=== PATIENT | female | born 1945 | race Caucasian/White ===

== ENCOUNTER 2017-01-12 17:04 | Inpatient (IN) | payer OTHER ==
[~2017-01-12] VITALS: Ht 160 cm; Wt 43.1 kg
--- NOTE | 2017-01-12 17:06 | NUR ---
PT BIBA TO BED 8 AT THIS TIME.
[2017-01-12] MEDS ORDERED: NACL 0.9% 1,000 ML IV SCH (17:08)
--- NOTE | 2017-01-12 17:08 | NUR ---
71F BIBA FROM [facility] C/O HYPOGLYCEMIA TODAY; PER [facility], 2 IV'S TO LEFT/RT ARMS ESTABLISHED AT FACILITY "[facility]", [facility] REMOVED BOTH IV'S, AND STARTED 18G IV TO LEFT FA; IV PATENT AND FLUSHING WELL AT THIS TIME; NO REDNESS, INFILTRATION OR PAIN NOTED TO SITE AT THIS TIME; PT INITIAL BS 32; PT BS 118 IN FIELD AFTER D10 GIVEN BY [facility]; PT BS 98 AT THIS TIME; PT A&OX3, CALM/COOPERATIVE, PERRL, BL LUNG SOUNDS CLEAR, RR EVEN/UNLABORED, SKIN IS WARM/DRY AT THIS TIME; PT NOTED W/ REDNESS TO SACRUM AT THIS TIME; PT NOTED W/ G-TUBE. PT DENIES ANY PAIN, N/V/D OR DISCOMFORT AT THIS TIME. PT PLACED ON MONITOR, RESTING IN BED W/ HOB ELEVATED AND IN LOWEST POSITION; POSITIONED FOR COMFORT; ER MD MADE AWARE OF STATUS. WILL CONTINUE TO MONITOR.
[2017-01-12 17:10] VITALS: BP 167/75
[2017-01-12] MEDS ORDERED: ONDANSETRON 4 MG/2 ML VIAL IVP ONE (17:10)
--- NOTE | 2017-01-12 17:33 | NUR ---
XRAY AT BEDSIDE.
[2017-01-12 17:42] LABS: HEMATOCRIT 30.4 % (36-48); HEMOGLOBIN 9.9 g/dL (12.0-16.0); MEAN CORPUSCULAR HEMOGLOBIN 32 pg (27-31); MEAN CORPUSCULAR HGB CONC 33 g/dL (33-37); MEAN CORPUSCULAR VOLUME 98 fL (80-94); RED BLOOD CELL COUNT(AUTO) 3.11 MIL/uL (4.20-5.40); RED CELL DISTRIBUTION WIDTH 22.1 % (11.6-13.7); WHITE BLOOD COUNT (AUTO) 25.3 K/uL (4.8-10.8)
--- NOTE | 2017-01-12 17:42 | NUR ---
PT TAKEN TO CT VIA ANDRES, ACCOMPANIED BY INTERNET ARCHITECT AT THIS TIME.
[2017-01-12 17:57] LABS: ALANINE AMINOTRANSFERASE 33 U/L (12-78); ALKALINE PHOSPHATASE 122 U/L (46-116); ANION GAP 12.9 (8-16); ASPARTATE AMINOTRANSFERASE 31 U/L (15-37); CARBON DIOXIDE 26.9 mmol/L (21-32); CHLORIDE 97 mmol/L (98-107); CREATININE 1.6 mg/dL (0.6-1.3); POTASSIUM 4.8 mmol/L (3.5-5.1); SODIUM SERUM 132 mmol/L (136-145)
--- NOTE | 2017-01-12 17:58 | NUR ---
ASSISTED PT TO AMBULATE TO RESTROOM AT THIS TIME.
[2017-01-12] MEDS ORDERED: MULT-1328 PO (17:59)
[2017-01-12] MEDS ORDERED: MAGN400S60 PO (17:59)
[2017-01-12] MEDS ORDERED: TIMO5SOL OP (17:59)
[2017-01-12] MEDS ORDERED: GABA300C PO (17:59)
[2017-01-12] MEDS ORDERED: TRAM50TA94 PO (17:59)
[2017-01-12] MEDS ORDERED: DOCU-67 PO (17:59)
[2017-01-12] MEDS ORDERED: FERR325E14 PO (17:59)
[2017-01-12] MEDS ORDERED: DONE5TAB2 PO (17:59)
[2017-01-12] MEDS ORDERED: HYDR500C PO ×2 (17:59)
[2017-01-12] MEDS ORDERED: NA P135N19 RC (17:59)
[2017-01-12] MEDS ORDERED: CHOL500040 PO (17:59)
[2017-01-12] MEDS ORDERED: BISA-213 RC (17:59)
[2017-01-12] MEDS ORDERED: TYL650S PO (17:59)
[2017-01-12] MEDS ORDERED: LIPA1CAP3 PO (17:59)
[2017-01-12] MEDS ORDERED: GLUC1PDS1 IM (17:59)
[2017-01-12] MEDS ORDERED: CALC-1258 PO (17:59)
[2017-01-12] MEDS ORDERED: ZOLP10TA1 PO (17:59)
[2017-01-12] MEDS ORDERED: ENAL5TAB76 PO (17:59)
[2017-01-12 18:01] LABS: PLATELET COUNT (AUTO) 787 K/uL (140-450)
[2017-01-12 18:06] LABS: ANISOCYTOSIS 2+; BAND % (MANUAL) 1 % (0-8); EOSINOPHILS % (MANUAL) 3 % (0-4); LYMPHOCYTES % (MANUAL) 5 % (20-46); MONOCYTES % (MANUAL) 6 % (5-12); NEUTROPHILS % (MANUAL) 85 (43-65); PLATELET ESTIMATE INCREASED
[2017-01-12] MEDS ORDERED: NACL 0.9% 1,000 ML IV ONE (18:10)
[2017-01-12 18:11] LABS: ALBUMIN 2.9 g/dL (3.4-5.0); CALCIUM 8.4 mg/dL (8.5-10.1); GLUCOSE 161 mg/dL (74-106); TOTAL BILIRUBIN 0.2 mg/dL (0.0-1.0); UREA NITROGEN, BLOOD 37 mg/dL (7-18)
[2017-01-12 18:13] LABS: PARTIAL THROMBOPLASTIN TIME 47.2 secs (22-35.6)
[2017-01-12 18:14] LABS: D-DIMER > 5000 ng/ml (0-400)
[2017-01-12 18:17] LABS: AMYLASE 39 U/L (25-115); LIPASE 46 U/L (73-393)
[2017-01-12 18:18] LABS: INR 5.8 (0.8-1.2)
[2017-01-12 18:28] LABS: PROTHROMBIN TIME 57.1 secs (10.8-13.4)
[2017-01-12] MEDS ORDERED: cefTRIAXone 1,000 MG VIAL ONE (18:28)
[2017-01-12 18:43] LABS: LACTIC ACID 1.4 mmol/L (0.4-2.0)
[2017-01-12 18:55] LABS: APPEARANCE,URINE CLEAR (CLEAR); BILIRUBIN,URINE NEGATIVE (NEGATIVE); BLOOD, URINE NEGATIVE (NEGATIVE); COLOR,URINE YELLOW (YELLOW); LEUKOCYTE ESTERASE ,URINE 1+ (NEGATIVE); NITRITE, URINE NEGATIVE (NEGATIVE); PH,URINE 6.5 (5.0-9.0); PROTEIN,URINE TRACE (NEGATIVE); UGLUCOSE NEGATIVE (NEGATIVE); UROBILINOGEN,URINE 0.2 EU/dL (0.2 - 1)
--- NOTE | 2017-01-12 18:55 | NUR ---
CALLED [facility] TO GIVE REPORT; RN STATED WILL CALL BACK IN 5 MINUTES; WILL CONTINUE TO MONITOR PT.
[2017-01-12 19:13] LABS: RBC,URINE NONE SEEN /HPF (0-5)
[2017-01-12 19:14] LABS: BACTERIA,URINE 1-9 (FEW) /HPF (None Seen); SQUAMOUS EPITHELIAL CELL,UR 0-3 (FEW) /LPF (0-3 (FEW))
--- NOTE | 2017-01-12 19:16 | NUR ---
REPORT GIVEN TO ANUP TURNER; TRANSFER OF CARE AT THIS TIME.
[2017-01-12] MEDS ORDERED: MORPHINE SULFATE 2 MG/ML SYR IVP PRN (19:20)
[2017-01-12] MEDS ORDERED: ONDANSETRON 4 MG/2 ML VIAL IVP PRN (19:20)
[2017-01-12] MEDS ORDERED: HYDROcodone/APAP 5/325 MG 1 TAB TAB PO PRN (19:20)
[2017-01-12] MEDS ORDERED: DOCUSATE SODIUM 100 MG GELCAP PO PRN (19:20)
[2017-01-12] MEDS: LACTOBACILLUS RHAMNOSUS GG 1 EACH CAP PO SCH (19:20)
[2017-01-12] MEDS ORDERED: ACETAMINOPHEN 325 MG TAB PO PRN (19:20)
--- NOTE | 2017-01-12 19:23 | NUR ---
Patient will be admitted to care of DR. KAMARA. Admited to TELEMETRY. Will go to room 124A. Belongings list completed. Report to ANUP TURNER.
[2017-01-12] MEDS ORDERED: SODIUM PHOSPHATE 118 ML ENEM RC PRN (19:25)
[2017-01-12] MEDS ORDERED: GABAPENTIN 300 MG CAP PO PRN (19:25)
[2017-01-12] MEDS ORDERED: GLUCAGON HUMAN RECOMBINANT 1 MG IM PRN (19:25)
[2017-01-12] MEDS ORDERED: BISACODYL 10 MG SUPP RC PRN (19:25)
[2017-01-12] MEDS ORDERED: MAGNESIUM HYDROXIDE 2400 MG/30 ML UDC PO PRN (19:25)
--- NOTE | 2017-01-12 19:54 | NUR ---
RECEIVED FROM AM RN PER MARGUERITE AWAKE AND ALERT. NO SOB. ABLE TO VERBALIZE NEEDS WELL. ON TELEMETRY MONITORING. NSR IN MONITOR 89.PT. ABLE TO VERBALIZE NEEDS IN SERBIAN. CALL LIGHT WITH IN REACH. ORIENTED TO ROOM AND CALL LIGHT. ENCOURAGED TO CALL FOR ANY HELP SHE MAY NEED OR IF IN PAIN. IVF SITE TO [id number]. REDNESS TO SACRAL AREA. ROM X 4.
[2017-01-12 19:56] LABS: AMPHETAMINE, URINE NEGATIVE ng/ml (NEG <=1000); BARBITURATE, URINE NEGATIVE ng/ml (NEG <=200); BENZODIAZEPINE, URINE POSITIVE ng/mL (NEG <=200); CANNABINOID, URINE NEGATIVE ng/mL (NEG <=50); COCAINE, URINE NEGATIVE ng/mL (NEG <=300); OPIATE, URINE NEGATIVE ng/mL (NEG <=2000); PHENCYCLIDINE SCREEN,URINE NEGATIVE ng/mL (NEG <=25)
[2017-01-12 20:00] VITALS: BP 150/63
[2017-01-12 20:00] LABS: MAGNESIUM 1.7 mg/dL (1.8-2.4); PHOSPHORUS 4.6 mg/dL (2.5-4.9)
[2017-01-12 20:08] LABS: BILIRUBIN,DIRECT 0.1 mg/dL (0.0-0.3)
[2017-01-12 20:33] LABS: FREE T4 (FREE THYROXINE) 0.99 ng/dL (0.76-1.46); THYROID STIMULATING HORMONE 4.67 uIU/mL (0.34-3.76)
[2017-01-12 20:47] LABS: PARTIAL THROMBOPLASTIN TIME 46.4 secs (22-35.6)
[2017-01-12 20:56] LABS: INR 5.1 (0.8-1.2)
[2017-01-12] MEDS ORDERED: TIMOLOL OP SCH (21:00)
[2017-01-12 21:06] LABS: LACTIC ACID 1.5 mmol/L (0.4-2.0)
[2017-01-12 21:18] LABS: PROTHROMBIN TIME 50.4 secs (10.8-13.4)
--- NOTE | 2017-01-12 22:00 | NUR ---
PT. AWAKE AND WATCHING TV AT THIS TIME. STAND BY ASSIST TO RESTROOM. ROM X 4. WITH WEAKNESS NOTED RT AFFLICTION. ENCOURAGED TO USE CALL LIGHT AT ALL TIMES FOR HELP . BED ALARM ON.
[2017-01-12] MEDS: ZOLPIDEM 10 MG TAB PO SCH (22:50)
[2017-01-12] MEDS: DONEPEZIL 10 MG TAB PO SCH (22:51)
[2017-01-12] MEDS: traMADol 50 MG TAB PO SCH (22:51)
[2017-01-12] MEDS: PIPER/TAZO 2.25GM/D5W PREMIX 50 ML IV SCH (23:56)
[2017-01-12] MEDS ORDERED: PIPERACILLIN/TAZOBACTAM 2.25 GM VIAL IV ONE (23:59)
[2017-01-13 00:27] VITALS: BP 139/60
--- NOTE | 2017-01-13 01:39 | NUR ---
SLEEPING AT THIS TIME. CALL LIGHT WITH IN REACH.
[2017-01-13 04:31] VITALS: BP 144/69
--- NOTE | 2017-01-13 04:52 | NUR ---
AWAKE AND ASSISTED TO RESTROOM. ABLE TO VERBALIZE NEEDS WELL. NO SOB. NO PAIN COMPLAINTS DONE THIS SHIFT. TELEMETRY MONITORING. BED ALARM ON .
[2017-01-13] MEDS ORDERED: PIPERACILLIN/TAZOBACTAM 2.25 GM VIAL IV ONE (05:41)
[2017-01-13] MEDS: PIPER/TAZO 2.25GM/D5W PREMIX 50 ML IV SCH ×3 (05:46→18:13)
--- NOTE | 2017-01-13 06:31 | NUR ---
PT. AWAKE AT THIS TIME. ASSISTED TO RESTROOM. ORIENTED X 4. ROM X 4. CLEAR SPEECH. NO SOB. DENIES PAIN THIS SHIFT.
--- NOTE | 2017-01-13 07:30 | NUR ---
RECEIVED PT ON BILLING ADMINISTRATOR ANUP TURNER. PT AWAKE, ALERT. ON ROOM AIR. NO S/S OF RESPIRATORY DISTRESS NOTED. VITALS TAKEN , NO FEVER. ABDOMEN SOFT, NON TENDER. PT ABLE TO MOVE ALL HER EXTREMITIES. DENIES PAIN AT THIS TIME. CALL LIGHT IN REACH, HOB ELEVATED 30 DEGREES WITH LOW BED POSITION. WILL CONTINUE TO MONITOR.
[2017-01-13 08:00] VITALS: BP 145/68
[2017-01-13] MEDS ORDERED: GLUCAGON 1 MG VIAL IM PRN (08:00)
--- NOTE | 2017-01-13 08:15 | NUR ---
ASSISTED PT TO AMBULATE TO BATHROOM.
--- NOTE | 2017-01-13 08:33 | NUR ---
RECEIVED CRITICAL LAB REPORT, PLT COUNT 730.8, WBC 20,7. DR. CASE AWARE, NO NEW ORDER RECEIVED .
--- NOTE | 2017-01-13 08:37 | NUR ---
PATIENT HAS BEEN SCREENED AND CATEGORIZED HIGH NUTRITION RISK. PATIENT WILL BE SEEN WITHIN 1-2 DAYS OF ADMISSION. 01/13/17-01/14/[address]
[2017-01-13 08:58] LABS: HEMATOCRIT 34.9 % (36-48); HEMOGLOBIN 11.2 g/dL (12.0-16.0); MEAN CORPUSCULAR HEMOGLOBIN 32 pg (27-31); MEAN CORPUSCULAR HGB CONC 32 g/dL (33-37); MEAN CORPUSCULAR VOLUME 99 fL (80-94); RED BLOOD CELL COUNT(AUTO) 3.53 MIL/uL (4.20-5.40); RED CELL DISTRIBUTION WIDTH 22.8 % (11.6-13.7); WHITE BLOOD COUNT (AUTO) 20.7 K/uL (4.8-10.8)
[2017-01-13 09:00] LABS: ANION GAP 13.9 (8-16); CALCIUM 9.1 mg/dL (8.5-10.1); CARBON DIOXIDE 29.4 mmol/L (21-32); CHLORIDE 96 mmol/L (98-107); CREATININE 1.6 mg/dL (0.6-1.3); GLUCOSE 68 mg/dL (74-106); POTASSIUM 4.3 mmol/L (3.5-5.1); SODIUM SERUM 135 mmol/L (136-145); UREA NITROGEN, BLOOD 31 mg/dL (7-18)
[2017-01-13] MEDS: TIMOLOL OP 0.25% 5 ML BTL OP SCH ×2 (09:00→20:36)
[2017-01-13] MEDS ORDERED: PROTEASE PO SCH (09:00)
[2017-01-13] MEDS ORDERED: LIPASE PO SCH (09:00)
[2017-01-13] MEDS ORDERED: AMYLASE PO SCH (09:00)
[2017-01-13] MEDS ORDERED: VITAMIN D3 PO SCH (09:00)
[2017-01-13] MEDS: HYDRAGUARD CREAM TP SCH ×2 (09:00→20:36)
[2017-01-13] MEDS ORDERED: CALCIUM CARBONATE PO SCH (09:00)
[2017-01-13 09:04] LABS: PLATELET COUNT (AUTO) 731 K/uL (140-450)
[2017-01-13] MEDS: CALCIUM CARB/VIT-D 500 MG/200 IU 1 TAB PO SCH (09:10)
[2017-01-13] MEDS: LACTOBACILLUS RHAMNOSUS GG 1 EACH CAP PO SCH (09:11)
[2017-01-13] MEDS: MULTIVITAMIN/MINERALS 1 TAB PO SCH (09:12)
[2017-01-13] MEDS: PANTOPRAZOLE 40 MG TABEC PO SCH (09:13)
[2017-01-13] MEDS: ENALAPRIL 5 MG TAB PO SCH (09:13)
[2017-01-13] MEDS: FERROUS SULFATE 325 MG TABEC PO SCH (09:13)
[2017-01-13] MEDS: traMADol 50 MG TAB PO SCH ×2 (09:14→20:32)
[2017-01-13] MEDS: AMYLASE/LIPASE/PROTEASE 1 CAPDR PO SCH (09:14)
[2017-01-13] MEDS: HYDROXYUREA 500 MG CAP PO SCH (09:37)
[2017-01-13 09:45] LABS: ANISOCYTOSIS 1+; BAND % (MANUAL) 1 % (0-8); BASOPHILS % (MANUAL) 1 % (0-2); EOSINOPHILS % (MANUAL) 2 % (0-4); LYMPHOCYTES % (MANUAL) 12 % (20-46); MONOCYTES % (MANUAL) 7 % (5-12); NEUTROPHILS % (MANUAL) 77 (43-65); PLATELET ESTIMATE INCREASED
--- NOTE | 2017-01-13 10:05 | NUR ---
ASSISTED PT TO AMBULATE TO BATH ROOM.
[2017-01-13 12:00] VITALS: BP 146/70
--- NOTE | 2017-01-13 12:05 | NUR ---
LUNCH TRAY SERVED. PT HAS A GOOD APPETITE.
--- NOTE | 2017-01-13 14:53 | NUR ---
CM NOTE INITIAL REVIEW FAXED TO [facility] / FAX# [phone], ATTN: TERESITA #[phone]
[2017-01-13 16:00] VITALS: BP 151/71
--- NOTE | 2017-01-13 16:35 | NUR ---
PT RESTING IN BED, WATCHING TV. NO S/S OF RESPIRATORY DISTRESS NOTED. PT STATES SHE FEELS COMFORTABLE AT THIS TIME.
--- NOTE | 2017-01-13 17:40 | NUR ---
PT'S SISTER AND MOTHER AT BEDSIDE, QUESTIONS ANSWERED .
[2017-01-13] MEDS ORDERED: DEXTROSE 50% 50 ML SYR IVP PRN (18:05)
[2017-01-13] MEDS: INSULIN LISPRO SLIDING SCALE 100 UNITS/ML VIAL SUBQ PRN (18:45)
--- NOTE | 2017-01-13 19:30 | NUR ---
RECEIVE REPORT FROM ANUP LO. PT IS AWAKE AND ALERT, SITTING POSITION, HAS NO COMPLAIN OF PAIN. ON ROOM AIR, HAS NO S/S OF RESPIRATORY DISTRESS/DISCOMFORT NOTED. IV SITE IS PATENT AND INTACT. PLAN OF CARE DISCUSSED, VERBALIZED UNDERSTANDING. SAFETY MEASURES CHECKED, CALL LIGHT WITHIN REACH. WILL CONTINUE TO MONITOR.
--- NOTE | 2017-01-13 19:30 | NUR ---
PT AWAKE, ALERT. NO S/S OF RESPIRATORY DISTRESS NOTED. REPORT GIVEN TO MOJGAN RN AT BEDSIDE. PT IN STABLE CONDITION AT THIS TIME.
[2017-01-13 20:00] VITALS: BP 138/68
[2017-01-13] MEDS: DONEPEZIL 10 MG TAB PO SCH (20:32)
[2017-01-13] MEDS: ZOLPIDEM 10 MG TAB PO SCH (20:32)
[2017-01-13] MEDS: BLOOD GLUCOSE MONITORING 1 DEV DEV FS SCH (20:34)
--- NOTE | 2017-01-13 20:38 | NUR ---
DUE MEDS GIVEN, PROVIDED DRUG INFO, BENEFITS AND S/E, VERBALIZED UNDERSTANDING. PT TOLERATED WELL. BLOOD SUGAR CHECKED, BSL= 283, INSULIN COVERAGE WILL HOLD DUE TO INSULIN HUMALOG WAS GIVEN AT 1845. CHARGE NURSE MADE AWARE.
--- NOTE | 2017-01-13 21:45 | NUR ---
PT AMBULATED TO THE RESTROOM, SAFETY PRECAUTION CHECKED, YELLOW SOCKS NOTED TO THE PT. PT IN STEADY GAIT.
[2017-01-14] VITALS: BP 122/57
--- NOTE | 2017-01-14 | NUR ---
V/S CHECKED AND STABLE. HAS NO COMPLAIN OF PAIN, NOT IN DISTRESS. NO SOB NOTED.
[2017-01-14] MEDS: PIPER/TAZO 2.25GM/D5W PREMIX 50 ML IV SCH ×5 (00:17→23:38)
--- NOTE | 2017-01-14 02:38 | NUR ---
PT IS SLEEPING. NO S/S OR RESPIRATORY DISTRESS/DISCOMFORT NOTED.
[2017-01-14 04:00] VITALS: BP 141/76
--- NOTE | 2017-01-14 04:00 | NUR ---
PT SLEEPING EASILY AWAKE BY HER NAME. V/S CHECKED ANS STABLE. NO COMPLAIN OF PAIN. NO S/S OF RESPIRATORY DISTRESS/DISCOMFORT NOTED.
[2017-01-14 05:45] LABS: HEMATOCRIT 29.3 % (36-48); HEMOGLOBIN 9.7 g/dL (12.0-16.0); MEAN CORPUSCULAR HEMOGLOBIN 32 pg (27-31); MEAN CORPUSCULAR HGB CONC 33 g/dL (33-37); MEAN CORPUSCULAR VOLUME 98 fL (80-94); PLATELET COUNT (AUTO) 730 K/uL (140-450); RED CELL DISTRIBUTION WIDTH 22.1 % (11.6-13.7); WHITE BLOOD COUNT (AUTO) 15.2 K/uL (4.8-10.8)
[2017-01-14] MEDS: INSULIN LISPRO SLIDING SCALE 100 UNITS/ML VIAL SUBQ PRN ×4 (05:55→21:00)
--- NOTE | 2017-01-14 06:00 | NUR ---
BLOOD SUGAR CHECKED, BSL= 406, ADMINISTERED 10 UNITS OF INSULIN, CHARGE NURSE MADE AWARE. WILL PAGE DR. KAMARA FOR THE INSULIN LEVEL.
[2017-01-14 06:04] LABS: ANION GAP 13.2 (8-16); CALCIUM 8.7 mg/dL (8.5-10.1); CARBON DIOXIDE 27.1 mmol/L (21-32); CHLORIDE 94 mmol/L (98-107); CREATININE 2.1 mg/dL (0.6-1.3); GLUCOSE 385 mg/dL (74-106); MAGNESIUM 1.7 mg/dL (1.8-2.4); PHOSPHORUS 4.3 mg/dL (2.5-4.9); POTASSIUM 5.3 mmol/L (3.5-5.1); SODIUM SERUM 129 mmol/L (136-145); UREA NITROGEN, BLOOD 35 mg/dL (7-18)
--- NOTE | 2017-01-14 06:40 | NUR ---
PAGED DR. KAMARA, WAITING FOR CALL BACK. RECHECKED BLOOD SUGAR, BSL = 358.
[2017-01-14 06:47] LABS: BAND % (MANUAL) 1 % (0-8); EOSINOPHILS % (MANUAL) 1 % (0-4); LYMPHOCYTES % (MANUAL) 8 % (20-46); MONOCYTES % (MANUAL) 1 % (5-12); NEUTROPHILS % (MANUAL) 89 (43-65)
[2017-01-14 06:48] LABS: PLATELET ESTIMATE INCREASED
[2017-01-14 06:49] LABS: ANISOCYTOSIS 1+
--- NOTE | 2017-01-14 07:11 | NUR ---
ENDORSED REPORT TO DAY SHIFT NURSE FOR CONTINUITY OF CARE. PT IS IN STABLE CONDITION.
[2017-01-14 07:40] LABS: INR 2.9 (0.8-1.2); PROTHROMBIN TIME 28.4 secs (10.8-13.4)
--- NOTE | 2017-01-14 07:45 | NUR ---
RECEIVED PT LYING IN BED AAOX2, PLEASANT, COOPERATIVE BUT FORGETFUL. PT VOICED NO C/O PAIN/ DISCOMFORT AT THIS TIME. SHIFT ASSESSMENT DONE AND CHARTED. PLAN OF CARE, MEDS, TREATMENTS AND SAFETY DISCUSSED WITH PT AND PT VERBALIZED UNDERSTANDING. WILL CONTINUE TO CHECK PT.
[2017-01-14] MEDS: NACL 0.9% 1,000 ML IV SCH ×2 (07:57→20:32)
[2017-01-14 08:00] VITALS: BP 125/68
[2017-01-14] MEDS ORDERED: SODIUM POLYSTYRENE 15 GM/60 ML UDBTL PR SCH (08:00)
[2017-01-14] MEDS: BLOOD GLUCOSE MONITORING 1 DEV DEV FS SCH ×4 (08:14→21:00)
--- NOTE | 2017-01-14 08:30 | NUR ---
PT TOOK DIET AND FLUIDS FAIRLY WELL. KAYAXELATE PO GIVEN PER MD'S ORDER FOR K+ 5.3. PT TOLERATED IT WELL.
[2017-01-14] MEDS: CALCIUM CARB/VIT-D 500 MG/200 IU 1 TAB PO SCH (08:52)
[2017-01-14] MEDS: traMADol 50 MG TAB PO SCH ×2 (08:53→20:30)
[2017-01-14] MEDS: ENALAPRIL 5 MG TAB PO SCH (08:53)
[2017-01-14] MEDS: HYDROXYUREA 500 MG CAP PO SCH (08:54)
[2017-01-14] MEDS: FERROUS SULFATE 325 MG TABEC PO SCH (08:54)
[2017-01-14] MEDS: PANTOPRAZOLE 40 MG TABEC PO SCH (08:55)
[2017-01-14] MEDS: MULTIVITAMIN/MINERALS 1 TAB PO SCH (08:55)
[2017-01-14] MEDS: AMYLASE/LIPASE/PROTEASE 1 CAPDR PO SCH (08:55)
[2017-01-14] MEDS: LACTOBACILLUS RHAMNOSUS GG 1 EACH CAP PO SCH (08:55)
[2017-01-14] MEDS: TIMOLOL OP 0.25% 5 ML BTL OP SCH ×2 (08:56→20:30)
[2017-01-14] MEDS: LACTULOSE 20 GM/30 ML UDC PO SCH ×2 (08:57→12:21)
[2017-01-14] MEDS: HYDRAGUARD CREAM TP SCH ×2 (08:59→20:32)
[2017-01-14] MEDS: INSULIN DETEMIR 100 UNITS/ML 10 ML VIAL SUBQ SCH (08:59)
--- NOTE | 2017-01-14 09:15 | NUR ---
PT TOOK SCHEDULED PO MEDS AND TOLERATED OT WELL. REFUSED LACTULOSE PT STATED THAT SHE ALREADY HAD A BM. PT'S SISTER VISITING AT THIS TIME AND WANTED TO TALK TO MD FOR UPDATE ON PT'S CONDITION. DR. PRINCE NOTIFIED OF SAME.
[2017-01-14] MEDS ORDERED: MAGNESIUM OXIDE 400 MG TAB PO SCH (10:30)
--- NOTE | 2017-01-14 10:30 | NUR ---
DR. PRINCE WAS IN AND TALKED TO PT AND HER SISTER RE PT'S CONDITION.
--- NOTE | 2017-01-14 11:00 | NUR ---
TELEMETRY DISCONTINUED AND TELE BOX REMOVED AND RETURNED TO DIRECTOR TELEHEALTH.
--- NOTE | 2017-01-14 12:15 | NUR ---
01/14/17 RD INITIAL ASSESSMENT COMPLETED PLEASE REFER TO NUTRITION ASSESSMENT UNDER CARE ACTIVITY FOR ESTIMATED NUTRITIONAL NEEDS. ENEDINA RECOMMENDATIONS: 1. CONTINUE CARDIAC DIET WITH HONEY THICKENED LIQUIDS AND BOOST GLUCOSE CONTROL TID 2. RECOMMEND ADDING CCHO 60 GM TO CURRENT DIET ORDER D/T PT WITH PMH DM AND ELEVATED GLUCOSE LEVELS --PT MEETING 100% OF ESTIMATED KCAL AND PROTEIN NEEDS WITH DIET AND NUTRITIONAL SUPPLEMENT 3. RD WILL F/U 3-5 DAYS; HIGH RISK. GALINA LANDRY RD Addendum: 01/14/17 at [address] CORRECTION: 3. RD WILL F/U 3-5 DAYS; MODERATE RISK GALINA LANDRY RD
--- NOTE | 2017-01-14 13:00 | NUR ---
PT UP IN CHAIR AT BEDSIDE FOR LUNCH. TOOK DIET AND FLUIDS WELL. PT'S SON VISITING AND WAS SEEN BY DR. PRINCE PER PT'S SON REQUEST FOR UPDATE ON PT'S CONDITION.
[2017-01-14] MEDS: SODIUM POLYSTYRENE 15 GM/60 ML UDBTL PR SCH ×2 (13:53→20:29)
--- NOTE | 2017-01-14 15:27 | NUR ---
PT LYING IN BED COMFORTABLY AND WAS IN NO DISTRESS. NO CHANGES NOTED IN PT'S CONDITION.
[2017-01-14 16:00] VITALS: BP 136/63
--- NOTE | 2017-01-14 17:30 | NUR ---
PT C/O IV SITE BEING PAINFUL AND STARTING TO GET RED. SAME REMOVED WITH OLD CATH TIP INTACT AND PRESSURE DRESSINGS APPLIED TO SITE. NEW G22 IV INSERTED TO PT'S LEFT FOREARM ASEPTICALLY. PT TOLERATED IT WELL.
--- NOTE | 2017-01-14 19:20 | NUR ---
REPORT GIVEN TO ANGIE HEBERT AT BEDSIDE. NO CHANGES NOTED IN PT'S CONDITION.
--- NOTE | 2017-01-14 19:30 | NUR ---
RECEIVED REPORT FROM CODIE HEBERT AT BEDSIDE. PT IS ALERT AWAKE ORIENTED X3 WITH CONFUSION SOMETIMES. INITIAL ASSESSMENT DONE. NO S/S OF RESPIRATORY DISTRESS OR SOB NOTED. NO C/O PAIN OR ANY DISCOMFORT AT THIS TIME. PLAN OF CARE REVIEWED TO PT AND VERBALIZED UNDERSTANDING AND NEED TO BE REINFORCED. CALL LIGHT WITHIN REACH. WILL CONTINUE TO MONITOR.
[2017-01-14] MEDS: DONEPEZIL 10 MG TAB PO SCH (20:30)
[2017-01-14] MEDS ORDERED: DONEPEZIL 10 MG TAB PO SCH (21:00)
[2017-01-14] MEDS: ZOLPIDEM 10 MG TAB PO SCH (21:11)
[2017-01-15] VITALS: BP 157/66
--- NOTE | 2017-01-15 00:30 | NUR ---
PT IS SLEEPING RIGHT NOW BUT EASILY AROUSABLE. NO S/S OF ANY DISCOMFORT AT THIS TIME. ALL NEEDS ARE ATTENDED. CALL LIGHT WITHIN REACH. WILL CONTINUE TO MONITOR.
--- NOTE | 2017-01-15 05:15 | NUR ---
AM CARE RENDERED. BED LINEN CHANGED. INSTRUCTED PT TO REPOSITION. KEPT CLEAN AND DRY. CALL LIGHT WITHIN REACH. WILL CONTINUE TO MONITOR.
[2017-01-15] MEDS: PIPER/TAZO 2.25GM/D5W PREMIX 50 ML IV SCH ×4 (05:23→23:35)
[2017-01-15] MEDS: BLOOD GLUCOSE MONITORING 1 DEV DEV FS SCH ×4 (06:33→21:00)
[2017-01-15] MEDS: INSULIN LISPRO SLIDING SCALE 100 UNITS/ML VIAL SUBQ PRN ×4 (06:34→22:14)
[2017-01-15 06:58] LABS: BASOPHILS # (AUTO) 0.1 K/uL (0.00-0.22); BASOPHILS % (AUTO) 0.6 % (0.0-2.0); EOSINOPHILS # (AUTO) 0.2 K/uL (0-0.4); EOSINOPHILS % (AUTO) 1.4 % (0.0-4.0); HEMATOCRIT 26.6 % (36-48); HEMOGLOBIN 8.6 g/dL (12.0-16.0); LYMPHOCYTES # (AUTO) 1.5 K/uL (2.5-16.5); LYMPHOCYTES % (AUTO) 11.1 % (20.5-51.1); MEAN CORPUSCULAR HEMOGLOBIN 32 pg (27-31); MEAN CORPUSCULAR HGB CONC 32 g/dL (33-37); MEAN CORPUSCULAR VOLUME 98 fL (80-94); MONOCYTES # (AUTO) 1.1 K/uL (0.8-1.0); MONOCYTES % (AUTO) 8.3 % (1.7-9.3); NEUTROPHILS # (AUTO) 10.4 K/uL (1.8-7.7); NEUTROPHILS % (AUTO) 78.6 % (42.2-75.2); PLATELET COUNT (AUTO) 682 K/uL (140-450); RED BLOOD CELL COUNT(AUTO) 2.72 MIL/uL (4.20-5.40)
--- NOTE | 2017-01-15 07:24 | NUR ---
PT HAS NO S/S OF ANY DISCOMFORT. PLAN OF CARE ENDORSE TO AM SHIFT NURSE FOR CONTINUITY OF CARE.
--- NOTE | 2017-01-15 07:30 | NUR ---
RECEIVED PT AROUSABLE, IV PATENT, NO REPORT OF DISTRESS. SIDE RAILS UP, ISTRUCTED TO CALL NURSE FOR ANY NEED
--- NOTE | 2017-01-15 07:45 | NUR ---
PATIENT BS LEVEL AT CRITICAL HIGH 401 FROM 0600 LABS. NOTIFIED RESIDENTS. PT HAVE LEVEMIR 5 UNITS. TO RECHECK PRIOR ADMINISTRATION.
[2017-01-15 07:47] LABS: WHITE BLOOD COUNT (AUTO) 13.3 K/uL (4.8-10.8)
[2017-01-15 07:48] LABS: ANION GAP 14.2 (8-16); CALCIUM 8.3 mg/dL (8.5-10.1); CARBON DIOXIDE 25.5 mmol/L (21-32); CHLORIDE 97 mmol/L (98-107); CREATININE 1.8 mg/dL (0.6-1.3); POTASSIUM 3.7 mmol/L (3.5-5.1); SODIUM SERUM 133 mmol/L (136-145); UREA NITROGEN, BLOOD 29 mg/dL (7-18)
--- NOTE | 2017-01-15 07:50 | NUR ---
PT IS AWAKE AND ORIENTED. RADIOLOGY FOR CXR JUST FINISHED
[2017-01-15 08:00] VITALS: BP 153/71
[2017-01-15 08:18] LABS: GLUCOSE 407 mg/dL (74-106)
[2017-01-15 08:30] LABS: INR 1.3 (0.8-1.2); PARTIAL THROMBOPLASTIN TIME 30.8 secs (22-35.6); PROTHROMBIN TIME 12.6 secs (10.8-13.4)
--- NOTE | 2017-01-15 08:30 | NUR ---
RESIDENT DR DENNEY AT THE BEDSIDE NOTIFIED RE: ELEVATED BS LEVEL.MD REPORTED SHE WILL REVIEW FOR POSSIBLE MED ADJUSTMENT.
[2017-01-15 08:48] LABS: MAGNESIUM 1.7 mg/dL (1.8-2.4); PHOSPHORUS 3.6 mg/dL (2.5-4.9)
[2017-01-15] MEDS ORDERED: NON-FORMULARY ITEM (Cholecalciferol (Vitamin D3) (Vitamin D3) 50,000 UNIT) PO SCH (09:00)
[2017-01-15] MEDS ORDERED: ERGOCALCIFEROL 50,000 IU SGL PO SCH (09:00)
[2017-01-15] MEDS: LACTULOSE 20 GM/30 ML UDC PO SCH (09:00)
[2017-01-15] MEDS: traMADol 50 MG TAB PO SCH ×2 (09:04→22:04)
[2017-01-15] MEDS: ENALAPRIL 5 MG TAB PO SCH (09:05)
[2017-01-15] MEDS: HYDROXYUREA 500 MG CAP PO SCH (09:06)
[2017-01-15] MEDS: MULTIVITAMIN/MINERALS 1 TAB PO SCH (09:06)
[2017-01-15] MEDS: CALCIUM CARB/VIT-D 500 MG/200 IU 1 TAB PO SCH (09:07)
[2017-01-15] MEDS: PANTOPRAZOLE 40 MG TABEC PO SCH (09:07)
[2017-01-15] MEDS: LACTOBACILLUS RHAMNOSUS GG 1 EACH CAP PO SCH (09:07)
[2017-01-15] MEDS: AMYLASE/LIPASE/PROTEASE 1 CAPDR PO SCH (09:07)
[2017-01-15] MEDS: FERROUS SULFATE 325 MG TABEC PO SCH (09:08)
[2017-01-15] MEDS: TIMOLOL OP 0.25% 5 ML BTL OP SCH ×2 (09:09→22:20)
[2017-01-15] MEDS: INSULIN DETEMIR 100 UNITS/ML 10 ML VIAL SUBQ SCH (09:14)
[2017-01-15] MEDS: HYDRAGUARD CREAM TP SCH ×2 (09:23→21:00)
--- NOTE | 2017-01-15 09:26 | NUR ---
ADMINISTERED MEDS ORDERED. DR DENNEY SEEN PT AT THE BEDSIDE. NOTIFIED RE: NEED FOR VTE PROPHYLAXIS AND PT HAVING ELEVATED BS. ADMINISTERED INSULIN. LEFT PT IN BTHE BEDSIDE.
[2017-01-15] MEDS ORDERED: MAG SULF 2000 MG/WATER PREMIX 50 ML IV SCH (09:34)
--- NOTE | 2017-01-15 09:40 | NUR ---
MAGNESIUM 1.7 , MADE AWARE. ORDERED FOR MG RIDER.
--- NOTE | 2017-01-15 10:15 | NUR ---
ADMINISTERED MG RIDER ORDERED. PT RECENTLY FINISHED REHAB, WALKED INT HE HALLWAY WITH PT. TOLERATED WELL. IV PTENT NO SX OF INFECTION / IONFILTRATION
[2017-01-15] MEDS: NACL 0.9% 1,000 ML IV SCH (12:07)
--- NOTE | 2017-01-15 13:00 | NUR ---
WALKED PT IN THE HALLWAY. IV PATENT NO SX OF DISTRESS AT THIS TIME.
--- NOTE | 2017-01-15 14:03 | NUR ---
FAXED CONCURRENT REVIEW TO [facility] [phone] PHONE TERESITA [phone]
--- NOTE | 2017-01-15 15:00 | NUR ---
TRANSFERRED PT TO NEW ROOM REQUESTED. SIDE RAILS UP CALLLIGHT WITHIN REACH
[2017-01-15 16:00] VITALS: BP 117/78
--- NOTE | 2017-01-15 16:00 | NUR ---
WALKED WITH THE PATIETN IN THE HALLWAY . PT TOLERATED WELL.
[2017-01-15] MEDS: WARFARIN PO SCH ×2 (17:00)
[2017-01-15] MEDS ORDERED: WARFARIN 2 MG TAB PO SCH (17:00)
--- NOTE | 2017-01-15 18:00 | NUR ---
DINNER FINISHED. AWAKE AND ALERT ORIENTED. SIDE RAIL UP. CALL LIGHT WITHIN RECH
--- NOTE | 2017-01-15 19:02 | NUR ---
ROUNDS MADE: PT IS AWAKE. NO SX OF DISTRESS
--- NOTE | 2017-01-15 19:36 | NUR ---
ENDORSED TO NOC SHIFT MS TAFOYA. FOR CONT OF CARE. ALL MEDS GIVEN WITH NO ADVERSE REACTION. FALL PRECAUTION IMPLEMENTED. PT IS ALERT. BROUGHT TO THE TOILET. IV INTACT.
--- NOTE | 2017-01-15 19:37 | NUR ---
RECD. SITTING IN BED, AWAKE, A/OX3, WITH FORGETFULNESS, RESPIRATION EVEN AND UNLABORED. IV SALINE LOCK AT THE RIGHT FOREARM G 22, PATENT AND INTACT. GT IN THE ABDOMEN WITH DRESSING. AMBULATORY TO BR. SAFETY MEASURES ENFORCED. INSTRUCTED TO CALL NURSE WHENEVER NEEDING HELP. VERBALIZED UNDERSTANDING. DENIES PAIN 0/10.
--- NOTE | 2017-01-15 20:00 | NUR ---
Patient's Plan of Care was discussed and reviewed with BARREL AND RECEIVER ALIGNER: NIKO TAFOYA
--- NOTE | 2017-01-15 20:30 | NUR ---
WITH FORGETFULNESS, DOES NOT KNOW WHERE SHE IS. ORIENTED TO HOSPITAL SETTING.
[2017-01-15] MEDS: DONEPEZIL 10 MG TAB PO SCH (22:04)
[2017-01-15] MEDS: ZOLPIDEM 10 MG TAB PO SCH (22:04)
--- NOTE | 2017-01-15 22:20 | NUR ---
DUE PO MEDICATIONS GIVEN, TOLERATED WELL.
--- NOTE | 2017-01-15 23:00 | NUR ---
CALLED NURSE WANTS SLEEPING PILL, INFORMED THAT SHE HAD ALREADY TAKEN IT.
[2017-01-16] VITALS: BP 139/71
--- NOTE | 2017-01-16 | NUR ---
STILL AWAKE, ADVISED TO GO TO SLEEP.
--- NOTE | 2017-01-16 01:30 | NUR ---
SLEEPING COMFORTABLY IN BED.
[2017-01-16] MEDS: NACL 0.9% 1,000 ML IV SCH ×3 (02:04→20:43)
--- NOTE | 2017-01-16 05:30 | NUR ---
ASSISTED FOUR TIMES TO GO TO BR TO VOID, SAFETY MAINTAINED.
[2017-01-16] MEDS: PIPER/TAZO 2.25GM/D5W PREMIX 50 ML IV SCH ×4 (05:35→23:41)
[2017-01-16 06:18] LABS: BASOPHILS # (AUTO) 0.1 K/uL (0.00-0.22); BASOPHILS % (AUTO) 0.4 % (0.0-2.0); EOSINOPHILS # (AUTO) 0.2 K/uL (0-0.4); EOSINOPHILS % (AUTO) 1.5 % (0.0-4.0); HEMATOCRIT 26.9 % (36-48); HEMOGLOBIN 8.6 g/dL (12.0-16.0); LYMPHOCYTES # (AUTO) 1.9 K/uL (2.5-16.5); LYMPHOCYTES % (AUTO) 11.9 % (20.5-51.1); MEAN CORPUSCULAR HEMOGLOBIN 31 pg (27-31); MEAN CORPUSCULAR HGB CONC 32 g/dL (33-37); MEAN CORPUSCULAR VOLUME 98 fL (80-94); MONOCYTES # (AUTO) 1.4 K/uL (0.8-1.0); MONOCYTES % (AUTO) 8.7 % (1.7-9.3); NEUTROPHILS # (AUTO) 12.3 K/uL (1.8-7.7); PLATELET COUNT (AUTO) 690 K/uL (140-450); RED BLOOD CELL COUNT(AUTO) 2.73 MIL/uL (4.20-5.40); WHITE BLOOD COUNT (AUTO) 15.9 K/uL (4.8-10.8)
[2017-01-16 06:22] LABS: ANION GAP 12.2 (8-16); CALCIUM 8.4 mg/dL (8.5-10.1); CARBON DIOXIDE 26.8 mmol/L (21-32); CHLORIDE 97 mmol/L (98-107); CREATININE 1.7 mg/dL (0.6-1.3); GLUCOSE 380 mg/dL (74-106); SODIUM SERUM 132 mmol/L (136-145); UREA NITROGEN, BLOOD 27 mg/dL (7-18)
[2017-01-16 06:32] LABS: INR 1.2 (0.8-1.2); PARTIAL THROMBOPLASTIN TIME 26.8 secs (22-35.6); PROTHROMBIN TIME 11.1 secs (10.8-13.4)
[2017-01-16] MEDS: BLOOD GLUCOSE MONITORING 1 DEV DEV FS SCH ×4 (06:34→20:42)
[2017-01-16] MEDS: INSULIN LISPRO SLIDING SCALE 100 UNITS/ML VIAL SUBQ PRN ×3 (06:35→20:46)
[2017-01-16 06:36] LABS: MAGNESIUM 1.9 mg/dL (1.8-2.4); PHOSPHORUS 3.3 mg/dL (2.5-4.9)
--- NOTE | 2017-01-16 06:45 | NUR ---
AWAKE, SITTING ON BED. CONDITION REMAIN STABLE. WILL ENDORSE TO AM NURSE FOR CONTINUITY OF CARE.
--- NOTE | 2017-01-16 07:00 | NUR ---
PT AWAKE ALERT AND ORIENTED X3, WITH PERIODS OF FORGETFULNESS. BREATHING EVENLY AND UNLABORED. NO SIGNS OF ACUTE DISTRESS. SKIN IS WARM AND DRY, NOTED SACRAL REDNESS, OFFLOAD TO PRESSURE AREAS, TURN AND REPOSITION Q2H. NO C/O ANY GI OR DISCOMFORT. DENIES OF ANY PAIN OR DISCOMFORT AT THIS TIME. ALL NEEDS ATTENDED, SAFETY PRECAUTIONS MAINTAINED. CALL LIGHT WITHIN REACH.
[2017-01-16 07:28] LABS: NEUTROPHILS % (AUTO) 77.5 % (42.2-75.2)
[2017-01-16 07:55] VITALS: BP 134/71
[2017-01-16] MEDS: HYDROXYUREA 500 MG CAP PO SCH (08:17)
[2017-01-16] MEDS: traMADol 50 MG TAB PO SCH ×2 (08:17→20:44)
[2017-01-16] MEDS: ENALAPRIL 5 MG TAB PO SCH (08:17)
[2017-01-16] MEDS: LACTULOSE 20 GM/30 ML UDC PO SCH (08:17)
[2017-01-16] MEDS: AMYLASE/LIPASE/PROTEASE 1 CAPDR PO SCH (08:18)
[2017-01-16] MEDS: PANTOPRAZOLE 40 MG TABEC PO SCH (08:18)
[2017-01-16] MEDS: LACTOBACILLUS RHAMNOSUS GG 1 EACH CAP PO SCH (08:18)
[2017-01-16] MEDS: MULTIVITAMIN/MINERALS 1 TAB PO SCH (08:18)
[2017-01-16] MEDS: FERROUS SULFATE 325 MG TABEC PO SCH (08:19)
[2017-01-16] MEDS: HYDRAGUARD CREAM TP SCH ×2 (08:19→20:45)
[2017-01-16] MEDS: CALCIUM CARB/VIT-D 500 MG/200 IU 1 TAB PO SCH (08:19)
[2017-01-16] MEDS: TIMOLOL OP 0.25% 5 ML BTL OP SCH ×2 (08:20→20:42)
[2017-01-16] MEDS ORDERED: INSULIN DETEMIR 100 UNITS/ML 10 ML VIAL SUBQ SCH (09:00)
--- NOTE | 2017-01-16 09:14 | NUR ---
NEW ORDERS RECEIVED FROM DR. CASE. NOTED AND CARRIED OUT.
--- NOTE | 2017-01-16 11:54 | NUR ---
CM NOTE CONCURRENT REVIEW FAXED TO [facility] / FAX# [phone], ATTN: TERESITA #[phone]
--- NOTE | 2017-01-16 13:27 | NUR ---
CM NOTE AUTH FOR [facility]SP[facility] PROVIDED BY [facility]: #[id number].
--- NOTE | 2017-01-16 14:16 | NUR ---
NEW MED AND LAB ORDERS RECEIVED FROM DR. CASE, NOTED AND CARRIED OUT.
[2017-01-16] MEDS ORDERED: MAGNESIUM OXIDE 400 MG TAB PO SCH (14:26)
[2017-01-16] MEDS: MAGNESIUM OXIDE 400 MG TAB PO SCH ×2 (14:29→22:09)
[2017-01-16 16:00] VITALS: BP 165/88
--- NOTE | 2017-01-16 16:00 | NUR ---
BP ELEVATED, 165/88. PT NO C/O HEADACHE PAIN OR DIZZINESS. NO NOTED SIGNS OF ACUTE DISTRESS. DR. CASE MADE AWARE. CONTINUE TO MONITOR.
[2017-01-16] MEDS: WARFARIN PO SCH ×2 (16:22)
[2017-01-16] MEDS ORDERED: POTASSIUM CHLORIDE 20% 40 MEQ/15 ML UDC GT SCH (17:00)
[2017-01-16] MEDS ORDERED: WARFARIN 2 MG TAB PO SCH (17:00)
--- NOTE | 2017-01-16 18:56 | NUR ---
PT ALERT AND ORIENTED, NO SIGNS OF ACUTE DISTRESS. ENDORSED TO ONCOMING ONCOLOGY PHYSICIAN NURSE FOR CONTINUITY OF CARE.
--- NOTE | 2017-01-16 19:28 | NUR ---
RECEIVED REPORT FROM ANUP ANTONIO, AT BEDSIDE. INITIAL ASSESSMENT AND BODY CHECK DONE. PATIENT AAO X 3-4 WITH EPISODE OF FORGETFULNESS, ABLE TO FOLLOW COMMAND AND MAKE NEEDS KNOWN AND ON BEDREST. PATIENT CURRENTLY SITTING UPON THE BED AND WATCHING TV. NO S/S OF DISTRESS OR SOB NOTED. SKIN WARM/DRY TO TOUCH WITH NORMAL COLOR AND STILL NOTED REDNESS TO SACRAL AREA (SILVINA). DISCUSSED PLAN OF CARE, PAIN MANAGEMENT AND MEDICATION REGIMEN WITH PATIENT AND PATIENT VERBALIZED UNDERSTANDING. PLACED PATIENT ON SAFETY/FALL/PRESSURE ULCER/ASPIRATION PRECAUTIONS AND WILL CONTINUE TO MONITOR. CALL LIGHT LEFT WITHIN REACH.
[2017-01-16 20:00] VITALS: BP 159/75
[2017-01-16] MEDS: ZOLPIDEM 10 MG TAB PO SCH (20:44)
[2017-01-16] MEDS ORDERED: DONEPEZIL 10 MG TAB PO SCH ×2 (21:00)
--- NOTE | 2017-01-16 21:40 | NUR ---
ADMINISTERED DUE AND PAIN MEDICATIONS MD'S ORDERED WITH EDUCATION GIVEN. PATIENT COMPLYING WITH MEDICATIONS AND TOLERATED WELL. ASSISTED PATIENT TO REPOSITION, OFFLOADED PRESSURE AREAS AND KEPT PATIENT IN COMFORTABLE POSITION/WARM. WILL CONTINUE TO MONITOR.
--- NOTE | 2017-01-16 23:30 | NUR ---
ASSISTED PATIENT TO THE RESTROOM AND BACK TO BED SAFELY. PATIENT TOLERATED ACTIVITY WELL.
[2017-01-17] VITALS: BP 153/70
--- NOTE | 2017-01-17 01:26 | NUR ---
PATIENT CURRENTLY SLEEPING QUIETLY IN BED WITH EVEN AND UNLABORED RESPIRATORY RATE. NO CHANGE IN CONDITION NOTED AND WILL CONTINUE TO MONITOR.
--- NOTE | 2017-01-17 04:08 | NUR ---
PATIENT IS CLINICALLY STABLE AND NO S/S OF DISTRESS NOTED. WILL CONTINUE TO MONITOR.
[2017-01-17 05:02] LABS: INR 1.1 (0.8-1.2); PROTHROMBIN TIME 10.8 secs (10.8-13.4)
[2017-01-17] MEDS: PIPER/TAZO 2.25GM/D5W PREMIX 50 ML IV SCH ×2 (05:27→12:34)
[2017-01-17] MEDS: BLOOD GLUCOSE MONITORING 1 DEV DEV FS SCH ×2 (05:48→10:37)
[2017-01-17] MEDS: INSULIN LISPRO SLIDING SCALE 100 UNITS/ML VIAL SUBQ PRN ×2 (05:51→10:41)
--- NOTE | 2017-01-17 06:07 | NUR ---
NOTED BLOOD SUGAR 395 MG/DL AND GAVE 10 UNITS OF REGULAR INSULIN COVERAGE. PATIENT IS ASYMPTOMATIC OF HYPERGLYCEMIA AND NO CHANGE IN LOC.
--- NOTE | 2017-01-17 07:07 | NUR ---
PATIENT RESTED WELL THROUGHOUT THE SHIFT AND REMAINED IN STABLE CONDITION WITHOUT APPARENT DISTRESS NOTED. ENDORSED PLAN OF CARE TO ANUP ANTONIO, AT BEDSIDE.
--- NOTE | 2017-01-17 07:11 | NUR ---
RECEIVED PT IN BED. AWAKE, ALERT, ORIENTED X2-3 WITH PERIOD OF FORGETFULNESS. NO SOB NOTED. DENIES ANY PAIN OR DISCOMFORT NOTED AT THIS TIME. PT AMBULATORY WITH ASSIST. POSITIVE BOWEL SOUNDS NOTED ON FOUR QUADRANTS. SACRAL REDNESS NOTED. OFF LOAD BONY PROMINENCE. SAFETY PRECAUTION IN PLACE. CALL LIGHT WITHIN REACH.
[2017-01-17] MEDS ORDERED: BLOO1STR10 MC (07:53)
[2017-01-17] MEDS ORDERED: LEVEMIR SUBQ (07:53)
[2017-01-17] MEDS ORDERED: HUMSLIDE SUBQ (07:53)
[2017-01-17] MEDS ORDERED: PIPE1PDS26 IV (07:54)
[2017-01-17] MEDS ORDERED: PIPE1PDS39 IV (07:55)
[2017-01-17] MEDS ORDERED: PANT40EC28 PO (07:56)
[2017-01-17 08:00] VITALS: BP 153/74
[2017-01-17 08:29] LABS: EOSINOPHILS # (AUTO) 0.3 K/uL (0-0.4); LYMPHOCYTES # (AUTO) 3.3 K/uL (2.5-16.5); MONOCYTES # (AUTO) 1.2 K/uL (0.8-1.0)
[2017-01-17] MEDS: LACTULOSE 20 GM/30 ML UDC PO SCH (08:29)
[2017-01-17] MEDS: AMYLASE/LIPASE/PROTEASE 1 CAPDR PO SCH (08:29)
[2017-01-17] MEDS: CALCIUM CARB/VIT-D 500 MG/200 IU 1 TAB PO SCH (08:29)
[2017-01-17] MEDS: HYDROXYUREA 500 MG CAP PO SCH (08:30)
[2017-01-17] MEDS: MULTIVITAMIN/MINERALS 1 TAB PO SCH (08:30)
[2017-01-17] MEDS: LACTOBACILLUS RHAMNOSUS GG 1 EACH CAP PO SCH (08:30)
[2017-01-17] MEDS: FERROUS SULFATE 325 MG TABEC PO SCH (08:30)
[2017-01-17] MEDS: PANTOPRAZOLE 40 MG TABEC PO SCH (08:30)
[2017-01-17] MEDS: traMADol 50 MG TAB PO SCH (08:31)
[2017-01-17] MEDS: ENALAPRIL 5 MG TAB PO SCH (08:31)
[2017-01-17 08:32] LABS: BASOPHILS # (AUTO) 0.2 K/uL (0.00-0.22); BASOPHILS % (AUTO) 1.7 % (0.0-2.0); EOSINOPHILS % (AUTO) 2.4 % (0.0-4.0); HEMATOCRIT 29.9 % (36-48); HEMOGLOBIN 9.8 g/dL (12.0-16.0); LYMPHOCYTES % (AUTO) 22.7 % (20.5-51.1); MEAN CORPUSCULAR HEMOGLOBIN 33 pg (27-31); MEAN CORPUSCULAR HGB CONC 33 g/dL (33-37); MEAN CORPUSCULAR VOLUME 100 fL (80-94); NEUTROPHILS # (AUTO) 9.5 K/uL (1.8-7.7); NEUTROPHILS % (AUTO) 65.2 % (42.2-75.2); PLATELET COUNT (AUTO) 699 K/uL (140-450); RED BLOOD CELL COUNT(AUTO) 3.01 MIL/uL (4.20-5.40); RED CELL DISTRIBUTION WIDTH 22.8 % (11.6-13.7); WHITE BLOOD COUNT (AUTO) 14.5 K/uL (4.8-10.8)
--- NOTE | 2017-01-17 08:38 | NUR ---
SS NOTE: PER IRISH FROM [facility] ([phone]), PT CAN GO TO ROOM 30A UNDER DR. SHANNAN LUCAS ANYTIME ONCE THEY RECEIVE AUTH FROM PT'S INSURANCE. HERMINIA PATEL.
[2017-01-17] MEDS: HYDRAGUARD CREAM TP SCH (08:42)
[2017-01-17] MEDS: TIMOLOL OP 0.25% 5 ML BTL OP SCH (08:43)
[2017-01-17 08:50] LABS: ANISOCYTOSIS 1+; POIKILOCYTOSIS 1+
[2017-01-17] MEDS ORDERED: INSULIN DETEMIR 100 UNITS/ML 10 ML VIAL SUBQ SCH (09:00)
--- NOTE | 2017-01-17 09:51 | NUR ---
FA[place]ED [place] [facility] [place] [phone] DISCHARGE SUMMARY FAXED PHONE TERESITA [phone] AUTH FOR [facility] FROM TERES[facility] IS [id number]. IRISH FROM [facility] TO CALL ME BACK.
[2017-01-17 10:03] LABS: ANION GAP 13.1 (8-16); CALCIUM 9.1 mg/dL (8.5-10.1); CARBON DIOXIDE 26.2 mmol/L (21-32); CHLORIDE 97 mmol/L (98-107); CREATININE 1.9 mg/dL (0.6-1.3); POTASSIUM 5.3 mmol/L (3.5-5.1); SODIUM SERUM 131 mmol/L (136-145); UREA NITROGEN, BLOOD 27 mg/dL (7-18)
[2017-01-17 10:05] LABS: GLUCOSE 407 mg/dL (74-106)
--- NOTE | 2017-01-17 10:10 | NUR ---
ROBIN FROM [facility] CALLED REGARDING GLUCOSE LEVEL OF 407. DR CASE MAKING ROUNDS MADE AWARE OF CRITICAL VALUE.
--- NOTE | 2017-01-17 11:15 | NUR ---
CALLED [facility] SPOKE WITH MARILU, GAVE REPORT REGARDING PT TRANSFER. MADE AWARE OF SALES ORDER SPECIALIST TIME.
--- NOTE | 2017-01-17 11:21 | NUR ---
CALLED [facility] AND SPOKE WITH EVELINA [phone]. SET UP [facility] TRANSPORT FOR 1:30 P.M. JOSETTE HEBERT INFORMED.
[2017-01-17] MEDS: NACL 0.9% 1,000 ML IV SCH (11:42)
--- NOTE | 2017-01-17 11:54 | NUR ---
DISCHARGE INSTRUCTIONS GIVEN TO PT. PT SIGNED DISCHARGE PAPERS, PT IS FORGETFUL, REINFORCEMENT NEEDED FOR HEALTH TEACHING. PT DENIES ANY PAIN OR DISCOMFORT. NO SOB NOTED.
[2017-01-17 12:23] LABS: FOLIC ACID 15.7 ng/mL (>3.0)
[2017-01-17] MEDS: MAGNESIUM OXIDE 400 MG TAB PO SCH (14:14)
--- NOTE | 2017-01-17 14:21 | NUR ---
[facility] ARRIVED. GIVEN REPORT. LAST VITAL SIGNS TAKEN AND RECORDED FOLLOWS: BP 156/67, RR 20, MN 85, 02 SAT AT 100% ROOM AIR, TEMP AT 96.2. PT DENIES ANY PAIN OR DISCOMFORT AT THIS TIME. NO SOB NOTED. ARM, BAND REMOVED, IV ON LEFT FOREARM G22 LEFT IN PLACE, INTACT, PATENT.
--- NOTE | 2017-01-17 14:26 | NUR ---
PT TRANSFERRED TO [facility] ST[facility] CONDITION.
[2017-01-17] MEDS ORDERED: WARFARIN 5 MG TAB PO SCH (17:00)
== END 2017-01-17 14:26 | DRG 177 ==
LOC: MED 17:04 → MTU 18:27 → MMU 01-15 13:30 → MTU 01-15 19:33
PROVIDERS: ADMIT Student in an Organized Health Care Education/Training Program; ATTEND Student in an Organized Health Care Education/Training Program
DX: J69.0 Pneumonitis due to inhalation of food and vomit (principal); G93.41 Metabolic encephalopathy; N17.0 Acute kidney failure with tubular necrosis; E43 Unspecified severe protein-calorie malnutrition; N39.0 Urinary tract infection, site not specified; E87.1 Hypo-osmolality and hyponatremia; Z68.1 Body mass index [BMI] 19.9 or less, adult; G30.9 Alzheimer's disease, unspecified; F02.80 Dementia in other diseases classified elsewhere, unspecified severity, without behavioral disturbance, psychotic disturbance, mood disturbance, and anxiety; D63.8 Anemia in other chronic diseases classified elsewhere; L89.151 Pressure ulcer of sacral region, stage 1; E83.42 Hypomagnesemia; D72.829 Elevated white blood cell count, unspecified; E11.22 Type 2 diabetes mellitus with diabetic chronic kidney disease; E11.649 Type 2 diabetes mellitus with hypoglycemia without coma; I25.10 Atherosclerotic heart disease of native coronary artery without angina pectoris; K21.9 Gastro-esophageal reflux disease without esophagitis; N18.9 Chronic kidney disease, unspecified; I12.9 Hypertensive chronic kidney disease with stage 1 through stage 4 chronic kidney disease, or unspecified chronic kidney disease; D47.3 Essential (hemorrhagic) thrombocythemia; I48.2 Chronic atrial fibrillation; Z86.718 Personal history of other venous thrombosis and embolism; Z79.01 Long term (current) use of anticoagulants; Z93.1 Gastrostomy status; Z95.1 Presence of aortocoronary bypass graft; Z91.013 Allergy to seafood; Z79.899 Other long term (current) drug therapy
CPT/HCPCS: 36415; 70450; 71010; 80048; 80053; 80305; 81001; 82140; 82150; 82248; 82553; 82607; 82746; 82948; 83036; 83540; 83605; 83690; 83735; 83880; 84100; 84439; 84443; 84484; 85025; 85045; 85379; 85610; 85730; 87040; 87081; 87086; 93005; 96361; 96365; 96375; 97110; 97116; 97530; 99285; J0696; J1815; J2405; J2543; J3475; J7030; J7060; Q0092